=== PATIENT | female | born 1945 | race Caucasian/White ===

== ENCOUNTER 2023-07-10 08:54 | Outpatient (CLI) | payer MEDICARE | END 2023-07-10 23:59 | disposition home or self-care (01) | LOC: RAD 08:54 | PROVIDERS: ATTEND Family Medicine | DX: M16.12 Unilateral primary osteoarthritis, left hip (principal); M25.552 Pain in left hip; R06.02 Shortness of breath | CPT/HCPCS: 36415; 71046; 78315; 85651; 86140; A9503 ==